=== PATIENT | female | born 1935 | race Caucasian/White ===

== ENCOUNTER 2018-08-14 17:56 | Inpatient (IN) | payer MEDICARE, OTHER ==
[2018-08-14] MEDS: morphine 4 MG/ML VIAL IV (22:23)
[2018-08-14] MEDS: SOD CHLORIDE 0.9% 500 ML IV (22:23)
[2018-08-14] MEDS: ONDANSETRON 4 MG INJ IV (22:23)
[2018-08-14 23:21] LABS: ADD MAN DIFF? NO
[2018-08-14 23:27] LABS: WHITE BLOOD COUNT 18.9 10^3/ul (4.8-10.8)
[2018-08-14 23:27] LABS: BASOPHIL # 0.1 10^3/ul (0.0-0.1); BASOPHILS % 0.4 % (0.0-2.0); EOSINOPHILS # 0.1 10^3/ul (0.0-0.5); EOSINOPHILS % 0.3 % (0.0-7.0); HEMATOCRIT 33.6 % (37.0-47.0); HEMOGLOBIN 10.8 g/dl (12.0-16.0); LYMPHOCYTES % 10.5 % (15.0-51.0); MEAN CORPUSCULAR HEMOGLOBIN 30.5 pg (29.0-33.0); MEAN CORPUSCULAR HGB CONC 32.1 g/dl (32.0-37.0); MEAN CORPUSCULAR VOLUME 94.9 fl (82.0-101.0); MEAN PLATELET VOLUME 8.6 fl (7.4-10.4); MONOCYTE # 1.1 10^3/ul (0.3-0.9); MONOCYTES % 5.8 % (0.0-11.0); NEUTROPHIL # 15.4 10^3/ul (1.6-7.5); NEUTROPHILS % 81.2 % (39.0-77.0); PLATELET COUNT 375 10^3/UL (140-415); RED BLOOD COUNT 3.54 10^6/ul (4.20-5.40); RED CELL DISTRIBUTION WIDTH 12.7 % (11.5-14.5)
[2018-08-14 23:32] LABS: ADD UMIC YES; UR ASCORBIC ACID NEGATIVE (NEGATIVE); UR BACTERIA FEW /HPF (NONE SEEN); UR BILIRUBIN (Dip) NEGATIVE (NEGATIVE); UR BLOOD (Dip) 2+ mg/dL (NEGATIVE); UR CLARITY SLIGHTLY CLOUDY (CLEAR); UR COLOR YELLOW (YELLOW); UR GLUCOSE (Dip) NEGATIVE (NEGATIVE); UR KETONES (Dip) NEGATIVE (NEGATIVE); UR LEUKOCYTE ESTERASE (Dip) 3+ Leu/ul (NEGATIVE); UR MUCUS FEW /HPF (NONE SEEN); UR NITRITE (Dip) NEGATIVE (NEGATIVE); UR RBC 17 /HPF (0-5); UR SPECIFIC GRAVITY (Dip) 1.008 (1.003-1.030); UR SQUAMOUS EPITHELIAL CELL FEW /HPF (FEW); UR TOTAL PROTEIN (Dip) NEGATIVE (NEGATIVE); UR TRANSITIONAL EPI CELL FEW /HPF (NONE SEEN); UR UROBILINOGEN (Dip) NEGATIVE (NEGATIVE); UR WBC 25 /HPF (0-5)
[2018-08-14 23:45] LABS: ALANINE AMINOTRANSFERASE 18 IU/L (13-69); ALBUMIN 3.9 g/dl (3.3-4.9); ALBUMIN/GLOBULIN RATIO 1.11; ALKALINE PHOSPHATASE 94 IU/L (42-121); ANION GAP 15 (5-13); ASPARTATE AMINO TRANSFERASE 21 IU/L (15-46); BILIRUBIN,INDIRECT 0.4 mg/dl (0-1.1); BILIRUBIN,TOTAL 0.4 mg/dl (0.2-1.3); BLOOD UREA NITROGEN 14 mg/dl (7-20); CALCIUM 8.9 mg/dl (8.4-10.2); CARBON DIOXIDE 23 mmol/L (21-31); CHLORIDE 99 mmol/L (97-110); CREATININE 0.89 mg/dl (0.44-1.00); GLUCOSE 111 mg/dl (70-220); LIPASE 117 U/L (23-300); POTASSIUM 3.7 mmol/L (3.5-5.1); SODIUM 137 mmol/L (135-144); TOTAL PROTEIN 7.4 g/dl (6.1-8.1)
[2018-08-15] MEDS ORDERED: PIPER-TAZO 3.375 GM IV (PMX) 100 ML IVPB (00:30)
[2018-08-15] MEDS ORDERED: ALBUTEROL/IPRATROPIUM (NEB) 3 ML AMP HHN (00:30)
[2018-08-15] MEDS ORDERED: morphine 2 MG INJ IV (00:30)
[2018-08-15] MEDS ORDERED: VANCOMYCIN IV PER PHARMACY XX (00:30)
[2018-08-15] MEDS ORDERED: ONDANSETRON 4 MG INJ IV (00:30)
[2018-08-15] MEDS ORDERED: NACL 0.9% 3 ML SYG IV (00:30)
[2018-08-15] MEDS: PIPER-TAZO 3.375 GM IV (PMX) 100 ML IVPB ×4 (00:51→17:22)
[2018-08-15] MEDS: VANCOMYCIN 1 GM (PMX) 250 ML IVPB (02:12)
[2018-08-15 03:52] LABS: ADD MAN DIFF? NO
[2018-08-15 04:06] LABS: BASOPHIL # 0.1 10^3/ul (0.0-0.1); BASOPHILS % 0.4 % (0.0-2.0); EOSINOPHILS % 0.3 % (0.0-7.0); HEMATOCRIT 32.9 % (37.0-47.0); HEMOGLOBIN 10.7 g/dl (12.0-16.0); LYMPHOCYTES # 1.7 10^3/ul (0.8-2.9); LYMPHOCYTES % 10.9 % (15.0-51.0); MEAN CORPUSCULAR HGB CONC 32.5 g/dl (32.0-37.0); MEAN CORPUSCULAR VOLUME 95.4 fl (82.0-101.0); MEAN PLATELET VOLUME 8.6 fl (7.4-10.4); MONOCYTE # 0.8 10^3/ul (0.3-0.9); MONOCYTES % 5.2 % (0.0-11.0); NEUTROPHIL # 12.6 10^3/ul (1.6-7.5); PLATELET COUNT 373 10^3/UL (140-415); RED BLOOD COUNT 3.45 10^6/ul (4.20-5.40); RED CELL DISTRIBUTION WIDTH 12.7 % (11.5-14.5)
[2018-08-15 04:06] LABS: WHITE BLOOD COUNT 15.6 10^3/ul (4.8-10.8)
[2018-08-15 04:12] LABS: LACTIC ACID 0.9 mmol/L (0.5-2.0)
[2018-08-15 04:13] LABS: ALANINE AMINOTRANSFERASE 20 IU/L (13-69); ALBUMIN 3.4 g/dl (3.3-4.9); ALBUMIN/GLOBULIN RATIO 1.13; ALKALINE PHOSPHATASE 78 IU/L (42-121); ANION GAP 8 (5-13); ASPARTATE AMINO TRANSFERASE 20 IU/L (15-46); BILIRUBIN,INDIRECT 0.4 mg/dl (0-1.1); BILIRUBIN,TOTAL 0.4 mg/dl (0.2-1.3); BLOOD UREA NITROGEN 14 mg/dl (7-20); CALCIUM 8.4 mg/dl (8.4-10.2); CARBON DIOXIDE 24 mmol/L (21-31); CHLORIDE 107 mmol/L (97-110); CREATININE 0.83 mg/dl (0.44-1.00); GLUCOSE 106 mg/dl (70-220); MAGNESIUM 2.1 mg/dl (1.7-2.5); PHOSPHORUS 3.2 mg/dl (2.5-4.9); SODIUM 139 mmol/L (135-144); TOTAL PROTEIN 6.4 g/dl (6.1-8.1)
[2018-08-15] MEDS: DEXTROSE 5%-0.45% NACL 1,000 ML IV ×3 (05:17→20:55)
[2018-08-15] MEDS: FAMOTIDINE 20 MG INJ IV ×2 (08:34→20:55)
[2018-08-16] MEDS: PIPER-TAZO 3.375 GM IV (PMX) 100 ML IVPB ×4 (00:35→18:07)
[2018-08-16] MEDS ORDERED: VANCOMYCIN 1 GM 250 ML IVPB (02:00)
[2018-08-16 06:41] LABS: ADD MAN DIFF? NO
[2018-08-16 06:49] LABS: BASOPHIL # 0.1 10^3/ul (0.0-0.1); BASOPHILS % 0.4 % (0.0-2.0); EOSINOPHILS # 0.1 10^3/ul (0.0-0.5); EOSINOPHILS % 0.5 % (0.0-7.0); HEMATOCRIT 31.3 % (37.0-47.0); HEMOGLOBIN 10.1 g/dl (12.0-16.0); LYMPHOCYTES # 1.5 10^3/ul (0.8-2.9); LYMPHOCYTES % 9.7 % (15.0-51.0); MEAN CORPUSCULAR HEMOGLOBIN 30.3 pg (29.0-33.0); MEAN CORPUSCULAR HGB CONC 32.3 g/dl (32.0-37.0); MEAN PLATELET VOLUME 8.9 fl (7.4-10.4); MONOCYTE # 0.9 10^3/ul (0.3-0.9); MONOCYTES % 5.7 % (0.0-11.0); NEUTROPHIL # 12.8 10^3/ul (1.6-7.5); NEUTROPHILS % 82.5 % (39.0-77.0); PLATELET COUNT 376 10^3/UL (140-415); RED BLOOD COUNT 3.33 10^6/ul (4.20-5.40); RED CELL DISTRIBUTION WIDTH 12.7 % (11.5-14.5)
[2018-08-16 06:49] LABS: WHITE BLOOD COUNT 15.5 10^3/ul (4.8-10.8)
[2018-08-16 07:12] LABS: ANION GAP 8 (5-13); BLOOD UREA NITROGEN 10 mg/dl (7-20); CALCIUM 8.2 mg/dl (8.4-10.2); CARBON DIOXIDE 22 mmol/L (21-31); CHLORIDE 108 mmol/L (97-110); CREATININE 0.86 mg/dl (0.44-1.00); GLUCOSE 105 mg/dl (70-220); MAGNESIUM 2.1 mg/dl (1.7-2.5); PHOSPHORUS 2.7 mg/dl (2.5-4.9); POTASSIUM 3.6 mmol/L (3.5-5.1); SODIUM 138 mmol/L (135-144)
[2018-08-16 07:40] LABS: CARCINOEMBRYONIC ANTIGEN 1.4 ng/ml (0.0-5.0)
[2018-08-16] MEDS: FAMOTIDINE 20 MG INJ IV ×2 (08:10→20:55)
[2018-08-16] MEDS: ENOXAPARIN 30 MG/0.3 ML SYG SC (08:17)
[2018-08-16] MEDS: DEXTROSE 5%-0.45% NACL 1,000 ML IV (10:58)
[2018-08-17] MEDS: DEXTROSE 5%-0.45% NACL 1,000 ML IV ×3 (00:06→17:44)
[2018-08-17] MEDS: PIPER-TAZO 3.375 GM IV (PMX) 100 ML IVPB ×5 (00:06→23:59)
[2018-08-17 08:43] LABS: CARCINOEMBRYONIC ANTIGEN 1.3 ng/ml (0.0-5.0)
[2018-08-17] MEDS: FAMOTIDINE 20 MG INJ IV ×2 (08:46→21:10)
[2018-08-17] MEDS: ENOXAPARIN 30 MG/0.3 ML SYG SC (08:47)
[2018-08-17] MEDS: BARIUM SULF 2% 450 ML BTL (BERRY SMOOTHIE) PO (14:09)
[2018-08-18] MEDS: DEXTROSE 5%-0.45% NACL 1,000 ML IV ×3 (00:13→12:43)
[2018-08-18] MEDS: PIPER-TAZO 3.375 GM IV (PMX) 100 ML IVPB ×3 (05:41→18:32)
[2018-08-18] MEDS: FAMOTIDINE 20 MG INJ IV ×2 (09:47→21:11)
[2018-08-18] MEDS: ENOXAPARIN 30 MG/0.3 ML SYG SC (09:50)
[2018-08-19] MEDS: PIPER-TAZO 3.375 GM IV (PMX) 100 ML IVPB ×4 (00:01→17:41)
[2018-08-19] MEDS: DEXTROSE 5%-0.45% NACL 1,000 ML IV ×2 (01:22→15:20)
[2018-08-19] MEDS: PANTOPRAZOLE 40 MG INJ IV (06:06)
[2018-08-19 06:25] LABS: WHITE BLOOD COUNT 6.2 10^3/ul (4.8-10.8)
[2018-08-19 06:25] LABS: ADD MAN DIFF? NO; BASOPHILS % 0.7 % (0.0-2.0); EOSINOPHILS # 0.2 10^3/ul (0.0-0.5); EOSINOPHILS % 3.4 % (0.0-7.0); HEMATOCRIT 31.2 % (37.0-47.0); HEMOGLOBIN 10.1 g/dl (12.0-16.0); LYMPHOCYTES # 1.3 10^3/ul (0.8-2.9); LYMPHOCYTES % 20.8 % (15.0-51.0); MEAN CORPUSCULAR HEMOGLOBIN 29.9 pg (29.0-33.0); MEAN CORPUSCULAR HGB CONC 32.4 g/dl (32.0-37.0); MEAN CORPUSCULAR VOLUME 92.3 fl (82.0-101.0); MEAN PLATELET VOLUME 8.4 fl (7.4-10.4); MONOCYTE # 0.4 10^3/ul (0.3-0.9); MONOCYTES % 7.2 % (0.0-11.0); NEUTROPHIL # 4.1 10^3/ul (1.6-7.5); NEUTROPHILS % 65.9 % (39.0-77.0); PLATELET COUNT 394 10^3/UL (140-415); RED BLOOD COUNT 3.38 10^6/ul (4.20-5.40); RED CELL DISTRIBUTION WIDTH 12.5 % (11.5-14.5)
[2018-08-19 06:55] LABS: ANION GAP 8 (5-13); BLOOD UREA NITROGEN 3 mg/dl (7-20); CALCIUM 8.3 mg/dl (8.4-10.2); CARBON DIOXIDE 25 mmol/L (21-31); CHLORIDE 110 mmol/L (97-110); CREATININE 0.81 mg/dl (0.44-1.00); GLUCOSE 108 mg/dl (70-220); MAGNESIUM 1.8 mg/dl (1.7-2.5); SODIUM 143 mmol/L (135-144)
[2018-08-19] MEDS: FAMOTIDINE 20 MG INJ IV ×2 (09:02→21:12)
[2018-08-19] MEDS: ENOXAPARIN 30 MG/0.3 ML SYG SC (09:06)
[2018-08-19] MEDS: POTASSIUM CHLORIDE (SR) 20 MEQ TAB PO ×2 (12:45→15:22)
[2018-08-20] MEDS: PIPER-TAZO 3.375 GM IV (PMX) 100 ML IVPB ×2 (00:05→05:59)
[2018-08-20] MEDS: DEXTROSE 5%-0.45% NACL 1,000 ML IV ×4 (02:13→20:36)
[2018-08-20] MEDS: PANTOPRAZOLE 40 MG INJ IV (06:00)
[2018-08-20 06:17] LABS: ADD MAN DIFF? NO
[2018-08-20 06:25] LABS: BASOPHIL # 0.1 10^3/ul (0.0-0.1); BASOPHILS % 0.7 % (0.0-2.0); EOSINOPHILS # 0.2 10^3/ul (0.0-0.5); EOSINOPHILS % 2.4 % (0.0-7.0); HEMATOCRIT 30.2 % (37.0-47.0); HEMOGLOBIN 9.8 g/dl (12.0-16.0); LYMPHOCYTES # 1.3 10^3/ul (0.8-2.9); MEAN CORPUSCULAR HEMOGLOBIN 30.7 pg (29.0-33.0); MEAN CORPUSCULAR HGB CONC 32.5 g/dl (32.0-37.0); MEAN CORPUSCULAR VOLUME 94.7 fl (82.0-101.0); MEAN PLATELET VOLUME 8.9 fl (7.4-10.4); MONOCYTE # 0.6 10^3/ul (0.3-0.9); NEUTROPHIL # 4.8 10^3/ul (1.6-7.5); NEUTROPHILS % 68.2 % (39.0-77.0); PLATELET COUNT 397 10^3/UL (140-415); RED BLOOD COUNT 3.19 10^6/ul (4.20-5.40); RED CELL DISTRIBUTION WIDTH 12.9 % (11.5-14.5)
[2018-08-20 06:45] LABS: PHOSPHORUS 2.9 mg/dl (2.5-4.9)
[2018-08-20 06:45] LABS: MAGNESIUM 1.8 mg/dl (1.7-2.5)
[2018-08-20 07:22] LABS: ANION GAP 7 (5-13); BLOOD UREA NITROGEN 2 mg/dl (7-20); CALCIUM 8.5 mg/dl (8.4-10.2); CARBON DIOXIDE 22 mmol/L (21-31); CHLORIDE 114 mmol/L (97-110); CREATININE 0.82 mg/dl (0.44-1.00); GLUCOSE 95 mg/dl (70-220); POTASSIUM 3.6 mmol/L (3.5-5.1); SODIUM 143 mmol/L (135-144)
[2018-08-20] MEDS: FAMOTIDINE 20 MG INJ IV ×2 (09:07→20:36)
[2018-08-20] MEDS: ENOXAPARIN 30 MG/0.3 ML SYG SC (09:08)
[2018-08-20] MEDS: metroNIDAZOLE 500 MG/NS (PMX) 100 ML IVPB ×2 (14:20→22:08)
[2018-08-20] MEDS: CIPROFLOXACIN 400MG/D5W 200 ML IVPB (20:36)
[2018-08-21] MEDS: DEXTROSE 5%-0.45% NACL 1,000 ML IV ×2 (03:13→15:43)
[2018-08-21] MEDS: PANTOPRAZOLE (EC) 40 MG TAB PO (05:59)
[2018-08-21] MEDS: metroNIDAZOLE 500 MG/NS (PMX) 100 ML IVPB (06:00)
[2018-08-21 06:21] LABS: ADD MAN DIFF? NO
[2018-08-21 06:37] LABS: BASOPHIL # 0.1 10^3/ul (0.0-0.1); EOSINOPHILS # 0.2 10^3/ul (0.0-0.5); EOSINOPHILS % 2.8 % (0.0-7.0); HEMATOCRIT 33.4 % (37.0-47.0); HEMOGLOBIN 10.9 g/dl (12.0-16.0); LYMPHOCYTES # 1.6 10^3/ul (0.8-2.9); LYMPHOCYTES % 22.5 % (15.0-51.0); MEAN CORPUSCULAR HEMOGLOBIN 30.4 pg (29.0-33.0); MEAN CORPUSCULAR HGB CONC 32.6 g/dl (32.0-37.0); MEAN CORPUSCULAR VOLUME 93.3 fl (82.0-101.0); MEAN PLATELET VOLUME 8.9 fl (7.4-10.4); MONOCYTE # 0.6 10^3/ul (0.3-0.9); NEUTROPHIL # 4.3 10^3/ul (1.6-7.5); NEUTROPHILS % 61.4 % (39.0-77.0); PLATELET COUNT 410 10^3/UL (140-415); RED BLOOD COUNT 3.58 10^6/ul (4.20-5.40); RED CELL DISTRIBUTION WIDTH 13.1 % (11.5-14.5)
[2018-08-21 06:51] LABS: PHOSPHORUS 2.9 mg/dl (2.5-4.9)
[2018-08-21 06:51] LABS: MAGNESIUM 1.7 mg/dl (1.7-2.5)
[2018-08-21 07:24] LABS: ANION GAP 10 (5-13); CALCIUM 8.9 mg/dl (8.4-10.2); CARBON DIOXIDE 23 mmol/L (21-31); CHLORIDE 109 mmol/L (97-110); CREATININE 0.77 mg/dl (0.44-1.00); GLUCOSE 90 mg/dl (70-220); POTASSIUM 3.9 mmol/L (3.5-5.1); SODIUM 142 mmol/L (135-144)
[2018-08-21 07:25] LABS: BLOOD UREA NITROGEN < 2 mg/dl (7-20)
[2018-08-21] MEDS: FAMOTIDINE 20 MG INJ IV (09:02)
[2018-08-21] MEDS: CIPROFLOXACIN 400MG/D5W 200 ML IVPB (09:02)
[2018-08-21] MEDS: ENOXAPARIN 30 MG/0.3 ML SYG SC (09:08)
[2018-08-21] MEDS: metroNIDAZOLE 500 MG TAB PO (14:02)
[2018-08-21] MEDS ORDERED: morphine LIQ (10 MG/5 ML) CUP PO (15:30)
[2018-08-21] MEDS: CIPROFLOXACIN 500 MG TAB PO (17:52)
== END 2018-08-21 18:00 | disposition home or self-care (01) | DRG 872 ==
LOC: TEL 08-15 00:11 → 2NE 08-19 22:28 → E/R 17:56 → 2NE 08-16 16:35
DX: A41.9 Sepsis, unspecified organism (principal); N39.0 Urinary tract infection, site not specified; K57.20 Diverticulitis of large intestine with perforation and abscess without bleeding; K52.9 Noninfective gastroenteritis and colitis, unspecified; D37.4 Neoplasm of uncertain behavior of colon; Z90.710 Acquired absence of both cervix and uterus; K44.9 Diaphragmatic hernia without obstruction or gangrene; N26.1 Atrophy of kidney (terminal); I70.0 Atherosclerosis of aorta; M51.36 Other intervertebral disc degeneration, lumbar region; Z90.79 Acquired absence of other genital organ(s); Z90.722 Acquired absence of ovaries, bilateral; Z87.891 Personal history of nicotine dependence
CPT/HCPCS: 36415; 71045; 74176; 74177; 80048; 80053; 81001; 82378; 83605; 83690; 83735; 84100; 85025; 87040; 87075; 87081; 87338; 96361; 96374; 96375; 99285-25